=== PATIENT | female | born 1995 | race African-American/Black ===

== ENCOUNTER → 2016-05-02 | Outpatient (CLI) | payer OTHER ==
--- NOTE | 2016-05-02 13:49 | REP ---
Three-phase bone scan of the calves: History: Bilateral coronado splints. Technique: 20.6 mCi technetium 99m MDP is injected and standard three-phase imaging was acquired. Scintigraphic findings: The anterior and posterior flow study is normal. Blood pool images show no abnormality. On delayed scan images, there is focal linear uptake in the posteromedial cortex of each tibia consistent with stress periostitis. No established stress fracture is seen. Impression: Positive study for stress periostitis or coronado splints bilaterally affecting the tibias. Signed by Parth Norris MD 05/02/2016 03:09 P
== END ==
LOC: M RAD 09:38
PROVIDERS: ATTEND Physician Assistant
DX: M86.9 Osteomyelitis, unspecified (principal)

== ENCOUNTER 2018-04-07 20:43 | Emergency (ER) | payer OTHER ==
[~2018-04-07] VITALS: Ht 160 cm; Wt 73.6 kg
[2018-04-07] MEDS ORDERED: NAPR-49 PO (22:24)
[2018-04-07] MEDS ORDERED: NORCO, ANEXSIA 5/325MG TABLET (HYDROcodone/ACETAMINOPHEN) PO ONE (22:30)
[2018-04-07 22:51] VITALS: BP 122/75
--- NOTE | 2018-04-08 07:47 | REP ---
Clinical: Trauma. Technique: AP and axial views of the right clavicle. Findings: Sternoclavicular and acromioclavicular joints are stable. There is no evidence for acute fracture or subluxation. Surrounding soft tissues are normal. Impression: Normal right clavicle radiographs. No fracture. Electronically Signed by Erik Rahman MD 04/08/2018 07:38 A
== END 2018-04-07 22:45 | disposition home or self-care (01) ==
LOC: M ED 20:43
DX: S43.61XA Sprain of right sternoclavicular joint, initial encounter (principal); W19.XXXA Unspecified fall, initial encounter; Y92.89 Other specified places as the place of occurrence of the external cause; Y93.6A Activity, physical games generally associated with school recess, summer camp and children; K21.9 Gastro-esophageal reflux disease without esophagitis; D55.0 Anemia due to glucose-6-phosphate dehydrogenase [G6PD] deficiency; Z88.6 Allergy status to analgesic agent